=== PATIENT | female | born 1965 | race African-American/Black ===

== ENCOUNTER 2021-01-02 04:24 | Inpatient (IN) | payer MEDICARE, OTHER ==
[~2021-01-02] VITALS: Ht 185.4 cm; Wt 70.1 kg
[2021-01-02 06:47] LABS: BASOPHILS % 0.4 % (0.0-2.0); EOSINOPHILS % 0.6 % (0.0-5.0); HEMATOCRIT. 32.1 % (36.0-48.0); HEMOGLOBIN. 10.6 g/dL (12.0-16.0); LYMPHOCYTES % 33.9 % (20.0-50.0); MEAN CORPUSCULAR HEMOGLOBIN 30.4 pg (28.0-32.0); MEAN CORPUSCULAR VOLUME 92.3 fL (81.0-99.0); MEAN PLATELET VOLUME 9.2 fl (7.4-10.4); MONOCYTES % 11.6 % (2.0-8.0); NEUTROPHILS % 53.5 % (40.0-76.0); PLATELET 247 x1000/uL (130-400); RED BLOOD CELL COUNT 3.48 mill/uL (4.2-5.4)
[2021-01-02 06:53] LABS: CHLORIDE 111 mEq/L (98-107)
[2021-01-02 06:56] LABS: INR 1.1; PROTHROMBIN TIME 11.4 sec (9.6-11.0)
[2021-01-02 06:57] LABS: ETHANOL BLOOD 154 mg/dL
[2021-01-02] MEDS ORDERED: DIAZEPAM 5 MG TABLET PO SCH (09:15)
[2021-01-02] MEDS ORDERED: ACETAMINOPHEN 325MG TABLET PO ONE (09:15)
[2021-01-02 09:26] LABS: CLARITY URINE CLEAR (CLEAR); COLOR URINE YELLOW (YELLOW); KETONES URINE NEGATIVE (NEGATIVE); LEUKOCYTE ESTERASE URINE NEGATIVE (NEGATIVE); NITRITE URINE NEGATIVE (NEGATIVE); OCCULT BLOOD URINE NEGATIVE (NEGATIVE); PH URINE 7.5 (4.5-8.0); PROTEIN URINE NEGATIVE (NEGATIVE); SPECIFIC GRAVITY URINE 1.009 (1.005-1.030)
[2021-01-02 09:41] LABS: *AMPHETAMINES SCREEN URINE NEGATIVE (NEGATIVE); *BARBITURATES SCREEN URINE NEGATIVE (NEGATIVE); *BENZODIAZEPINES SCREEN URINE NEGATIVE (NEGATIVE); CANNABINOID URINE SCREEN NEGATIVE (NEGATIVE); METHADONE URINE SCREEN NEGATIVE (NEGATIVE); OPIATES URINE SCREEN NEGATIVE (NEGATIVE); PHENCYCLIDINE URINE SCREEN NEGATIVE (NEGATIVE)
[2021-01-02 09:42] LABS: *COCAINE SCREEN URINE NEGATIVE (NEGATIVE)
[2021-01-02] MEDS ORDERED: SODIUM CHLORIDE 0.9% 1,000 ML IV NR (12:45)
[2021-01-02 14:06] LABS: T4 FREE 0.81 ng/dL (0.76-1.46)
[2021-01-02] MEDS ORDERED: METHIMAZOLE 5MG TABLET PO NR (14:30)
[2021-01-02 16:00] VITALS: BP 130/90
[2021-01-02] MEDS ORDERED: DIPHENHYDRAMINE 50MG/ML VIAL IV PRN (17:00)
[2021-01-02] MEDS ORDERED: LORAZEPAM 2MG/ML CPJ IV PRN (17:00)
[2021-01-02] MEDS ORDERED: ONDANSETRON HCL 4MG/2ML INJ IV PRN (17:00)
[2021-01-02] MEDS ORDERED: DOCUSATE SODIUM 100MG CAPSULE PO PRN (17:00)
[2021-01-02] MEDS ORDERED: ACETAMINOPHEN 325MG TABLET PO PRN (17:00)
[2021-01-02] MEDS ORDERED: CLONIDINE 0.1MG TABLET PO PRN (17:00)
[2021-01-02] MEDS ORDERED: NA PHOS,M-B/NA PHOS,DI-BA ENEMA 118ML PR PRN (17:00)
[2021-01-02] MEDS ORDERED: IPRATROPIUM/ALBUTEROL 0.5-3(2.5)MG/3ML NEB NEB PRN (17:00)
[2021-01-02] MEDS ORDERED: GUAIFENESIN 200MG/10ML SUGAR FREE UDC PO PRN (17:00)
[2021-01-02] MEDS ORDERED: MAGNESIUM/ALUMINUM HYDROXIDE/SIMETHICONE 30ML UDC PO PRN (17:00)
[2021-01-02] MEDS ORDERED: HYDRALAZINE 20MG/ML VIAL IV PRN (17:00)
[2021-01-02] MEDS: HYDROCODONE/ACETAMINOPHEN 10/325MG TABLET PO PRN (17:12)
[2021-01-02] MEDS: ENOXAPARIN 40MG/0.4ML SYR SUBCUT SCH (17:22)
[2021-01-02] MEDS ORDERED: MVI, ADULT NO.1 10 ML, FOLIC ACID 1 MG, THIAMINE HCL 100 MG in SODIUM CHLORIDE 0.9% 1,0... IV ONE (18:00)
[2021-01-02 20:00] VITALS: BP 129/92
[2021-01-02] MEDS: SODIUM CHLORIDE 0.9% INJ 3ML FLUSH IVF SCH (21:41)
[2021-01-02] MEDS: MORPHINE SULFATE 2 MG/ML CPJ (NOT FOR IM USE) IV PRN (21:48)
[2021-01-03] VITALS: BP 139/98
[2021-01-03] MEDS: SODIUM CHLORIDE 0.45% 1,000 ML IV SCH ×4 (01:00→17:51)
[2021-01-03 04:00] VITALS: BP 152/98
[2021-01-03] MEDS: MORPHINE SULFATE 2 MG/ML CPJ (NOT FOR IM USE) IV PRN ×4 (04:28→22:46)
[2021-01-03] MEDS: SODIUM CHLORIDE 0.9% INJ 3ML FLUSH IVF SCH ×3 (05:35→21:30)
[2021-01-03 07:12] LABS: BASOPHILS % 0.4 % (0.0-2.0); EOSINOPHILS % 0.5 % (0.0-5.0); HEMATOCRIT. 28.4 % (36.0-48.0); HEMOGLOBIN. 9.2 g/dL (12.0-16.0); LYMPHOCYTES % 44.2 % (20.0-50.0); MEAN CORPUSCULAR HEMOGLOBIN 30.1 pg (28.0-32.0); MEAN CORPUSCULAR VOLUME 92.6 fL (81.0-99.0); MEAN PLATELET VOLUME 9.4 fl (7.4-10.4); MONOCYTES % 9.5 % (2.0-8.0); NEUTROPHILS % 45.4 % (40.0-76.0); PLATELET 162 x1000/uL (130-400); RED BLOOD CELL COUNT 3.07 mill/uL (4.2-5.4); RED CELL DISTRIBUTION WIDTH 16.6 % (11.6-14.6)
[2021-01-03 07:27] LABS: CHLORIDE 113 mEq/L (98-107)
[2021-01-03 07:42] LABS: CREATINE KINASE 33 IU/L (26-192)
[2021-01-03 08:00] VITALS: BP 137/91
[2021-01-03] MEDS: FOLIC ACID 1MG TABLET PO SCH (08:34)
[2021-01-03] MEDS: THIAMINE HCL 100MG TABLET PO SCH (08:34)
[2021-01-03] MEDS: MULTIVITAMINS,THER W-MINERALS TABLET PO SCH (08:34)
[2021-01-03 12:00] VITALS: BP 133/92
[2021-01-03 16:00] VITALS: BP 158/105
[2021-01-03] MEDS: ENOXAPARIN 40MG/0.4ML SYR SUBCUT SCH (17:53)
[2021-01-03] MEDS: HYDROCODONE/ACETAMINOPHEN 10/325MG TABLET PO PRN (18:16)
[2021-01-03 20:00] VITALS: BP 144/103
[2021-01-04] VITALS: BP 167/99
[2021-01-04] MEDS: SODIUM CHLORIDE 0.45% 1,000 ML IV SCH ×2 (01:04→08:46)
[2021-01-04] MEDS: HYDROCODONE/ACETAMINOPHEN 10/325MG TABLET PO PRN (02:29)
[2021-01-04 04:00] VITALS: BP 135/93
[2021-01-04] MEDS: SODIUM CHLORIDE 0.9% INJ 3ML FLUSH IVF SCH ×2 (06:23→13:34)
[2021-01-04] MEDS: MORPHINE SULFATE 2 MG/ML CPJ (NOT FOR IM USE) IV PRN ×2 (06:28→13:33)
[2021-01-04 08:00] VITALS: BP 143/98
[2021-01-04 08:04] LABS: CHLORIDE 113 mEq/L (98-107)
[2021-01-04 08:08] LABS: BASOPHILS % 0.6 % (0.0-2.0); EOSINOPHILS % 0.9 % (0.0-5.0); HEMATOCRIT. 27.3 % (36.0-48.0); HEMOGLOBIN. 8.9 g/dL (12.0-16.0); MEAN CORPUSCULAR HEMOGLOBIN 30.4 pg (28.0-32.0); MEAN CORPUSCULAR VOLUME 92.9 fL (81.0-99.0); MEAN PLATELET VOLUME 10.3 fl (7.4-10.4); MONOCYTES % 9.9 % (2.0-8.0); NEUTROPHILS % 45.6 % (40.0-76.0); PLATELET 142 x1000/uL (130-400); RED BLOOD CELL COUNT 2.94 mill/uL (4.2-5.4); RED CELL DISTRIBUTION WIDTH 15.8 % (11.6-14.6)
[2021-01-04 08:36] LABS: VITAMIN B12 SERUM 554 pg/mL (211-911)
[2021-01-04] MEDS: THIAMINE HCL 100MG TABLET PO SCH (08:46)
[2021-01-04] MEDS: MULTIVITAMINS,THER W-MINERALS TABLET PO SCH (08:46)
[2021-01-04] MEDS: FOLIC ACID 1MG TABLET PO SCH (08:46)
[2021-01-04 12:00] VITALS: BP 150/106
[2021-01-04] MEDS ORDERED: LOSA25TA26 MT (14:21)
[2021-01-04] MEDS ORDERED: ASPI-1406 MT (14:21)
[2021-01-04] MEDS ORDERED: GABA-529 MT (14:21)
[2021-01-04] MEDS ORDERED: METO-396 MT (14:21)
[2021-01-04] MEDS ORDERED: MIRT15TA6 MT (14:56)
[2021-01-04 16:00] VITALS: BP 148/92
[2021-01-04 16:45] VITALS: BP 147/99
== END 2021-01-04 17:55 | disposition home or self-care (01) | DRG 551 ==
LOC: ER 04:24 → 6WST 13:55 → ENRESERV 15:00
PROVIDERS: ADMIT Internal Medicine; ATTEND Internal Medicine
DX: M48.02 Spinal stenosis, cervical region (principal); E43 Unspecified severe protein-calorie malnutrition; E05.90 Thyrotoxicosis, unspecified without thyrotoxic crisis or storm; I10 Essential (primary) hypertension; G89.29 Other chronic pain; D64.9 Anemia, unspecified; M50.223 Other cervical disc displacement at C6-C7 level; R74.01 Elevation of levels of liver transaminase levels; F10.129 Alcohol abuse with intoxication, unspecified; Y90.9 Presence of alcohol in blood, level not specified; M47.812 Spondylosis without myelopathy or radiculopathy, cervical region; Z88.0 Allergy status to penicillin; Z79.899 Other long term (current) drug therapy; Z68.20 Body mass index [BMI] 20.0-20.9, adult
CPT/HCPCS: 36415; 72141; 80048; 80053; 80305; 80320; 81003; 82140; 82550; 82553; 82607; 82962; 84439; 84443; 84481; 84484; 85025; 86850; 86900; 99285; J1650; J2060; J2270; J3411; J3490; J7030; G0480